=== PATIENT | female | born 1985 ===

== ENCOUNTER → 2025-02-12 | Outpatient (REF) | payer OTHER ==
[2025-02-12 17:45] LABS: Trichomonas vaginalis (AMP) NOT DETECTED (NEGATIVE)
[2025-02-12 18:09] LABS: GC DNA AMPLIFICATION NEGATIVE (NEGATIVE)
== END ==
LOC: M LAB REF 16:14
PROVIDERS: ATTEND Student in an Organized Health Care Education/Training Program
DX: R30.0 Dysuria (principal)